=== PATIENT | female | born 1990 | race American Indian/Alaskan Native ===

== ENCOUNTER 2019-10-31 18:23 | Emergency (ER) | payer SELFPAY ==
[2019-10-31 18:37] VITALS: BP 106/67
--- NOTE | 2019-10-31 18:46 | Emergency Department Report ---
Upper Respiratory HPI - HPI Chief Complaint: Sore Throat Stated Complaint: COUGHING UP BLOOD/BODY ACHES Time Seen by Provider: 10/31/19 18:36 Duration: 1 week URI Symptoms: Rhinorrhea: Yes, Sore Throat: Yes, Ear Pain: No, Cough: Yes, Shortness of Breath: No, Sick Contacts: No, Unable to Take Fluids: No, Urine Output Abnormal: No, Listless Behavior: No Other History: This is a 29-year-old female nontoxic well in [facility] with no signs of distress presents with frontal sinus pain, sore throat, dry nonproductive cough x1 week. Patient denies any chest pain, shortness of breathe, fever, chills, nausea, vomiting, headache, stiff neck, abdominal pain, numbness or tingling. Patient denies any recent travels, long car rides, or recent hospital stays. Denies any allergies or significant PMH. - Home Meds and Allergies Home Medications: Previous Rx's Medication Instructions Recorded Last Taken Type Amlodipine Besylate [Norvasc] 5 mg PO DAILY #30 tablet 12/23/18 Unknown Rx Clindamycin [Clindamycin CAP] 300 mg PO Q8H #21 cap 12/23/18 Unknown Rx Hydrocortisone [Anusol-Hc] 30 gm RC BID #1 cream..g. 12/23/18 Unknown Rx Azithromycin [Zithromax Z-JOSE ANGEL] 250 mg PO DAILY #6 tablet 10/31/19 Unknown Rx Benzonatate [Tessalon Perles] 100 mg PO Q8HR PRN #20 capsule 10/31/19 Unknown Rx Ibuprofen [Motrin] 600 mg PO Q8H PRN #20 tablet 10/31/19 Unknown Rx Allergies/Adverse Reactions: Allergies Allergy/AdvReac Type Severity Reaction Status Date / Time No Known Allergies Allergy Unverified 12/23/18 08:18 ED Review of Systems ROS: Stated complaint: COUGHING UP BLOOD/BODY ACHES Other details as noted in HPI Constitutional: denies: chills, fever Eyes: denies: eye pain, eye discharge, vision change ENT: throat pain. denies: ear pain Respiratory: cough. denies: shortness of breath, wheezing Cardiovascular: denies: chest pain, palpitations Endocrine: no symptoms reported Gastrointestinal: denies: abdominal pain, nausea, diarrhea Genitourinary: denies: urgency, dysuria, discharge Musculoskeletal: denies: back pain, joint swelling, arthralgia Skin: denies: rash, lesions Neurological: denies: headache, weakness, paresthesias Psychiatric: denies: anxiety, depression Hematological/Lymphatic: denies: easy bleeding, easy bruising ED Past Medical Hx - Past Medical History Previous Medical History?: No - Surgical History Past Surgical History?: No - Social History Smoking Status: Never Smoker Substance Use Type: None - Medications Home Medications: Home Medications Medication Instructions Recorded Confirmed Last Taken Type Amlodipine Besylate [Norvasc] 5 mg PO DAILY #30 tablet 12/23/18 Unknown Rx Clindamycin [Clindamycin CAP] 300 mg PO Q8H #21 cap 12/23/18 Unknown Rx Hydrocortisone [Anusol-Hc] 30 gm RC BID #1 cream..g. 12/23/18 Unknown Rx Azithromycin [Zithromax Z-JOSE ANGEL] 250 mg PO DAILY #6 tablet 10/31/19 Unknown Rx Benzonatate [Tessalon Perles] 100 mg PO Q8HR PRN #20 capsule 10/31/19 Unknown Rx Ibuprofen [Motrin] 600 mg PO Q8H PRN #20 tablet 10/31/19 Unknown Rx ED Bronchiolitis Physical Exam - Exam General: Vital signs noted. No distress. Alert and acting appropriately. Neurologic: Alert and oriented, no deficits. Musculoskeletal: Unremarkable. ED Physical Exam - General Limitations: No Limitations General appearance: alert, in no apparent distress - Head Head exam: Present: atraumatic, normocephalic - Expanded ENT Exam Expanded Ear exam: Present: normal external inspection Mouth exam: Present: normal external inspection. Absent: drooling, trismus, muffled voice Teeth exam: Present: normal inspection Throat exam: Positive: tonsillar erythema, other (uvula midline). Negative: tonsillomegaly, tonsillar exudate, R peritonsillar mass, L peritonsillar mass - Neck Neck exam: Present: normal inspection, full ROM. Absent: tenderness, meningismus, lymphadenopathy - Respiratory Respiratory exam: Present: normal lung sounds bilaterally. Absent: respiratory distress, wheezes, rales, rhonchi, stridor, chest wall tenderness, accessory muscle use, decreased breath sounds, prolonged expiratory - Cardiovascular Cardiovascular Exam: Present: regular rate, normal rhythm, normal heart sounds. Absent: irregular rhythm, systolic murmur, diastolic murmur, rubs, gallop - Extremities Exam Extremities exam: Present: normal inspection, full ROM - Back Exam Back exam: Present: normal inspection, full ROM. Absent: tenderness, CVA tenderness (R), CVA tenderness (L), muscle spasm, paraspinal tenderness, vertebral tenderness, rash noted - Neurological Exam Neurological exam: Present: alert, oriented X3, normal gait - Psychiatric Psychiatric exam: Present: normal affect, normal mood - Skin Skin exam: Present: warm, dry, intact, normal color. Absent: rash - Other Other exam information: Positive frontal sinus pain. ED Course Vital Signs 10/31/19 18:32 Temperature 98.3 F Pulse Rate 98 H Respiratory 18 Rate Blood Pressure 106/67 O2 Sat by Pulse 79 L Oximetry - Reevaluation(s) Reevaluation #1: 10/31/19 18:44 Patient is speaking in full sentences with no signs of distress noted. ED Medical Decision Making - Medical Decision Making 29-year-old female that presents with sinusitis, pharyngitis, and bronchitis like symptoms. Patient is stable and was examined by me. PAtient will be treated with zpak. Vital signs are stable. Patient was instructed to Follow-up with a primary care doctor in 3-5 days or if symptoms worsen and continue return to emergency room as soon as possible. At time of discharge, the patient does not seem toxic or ill in appearance. No acute signs of distress noted. Patient agrees to discharge treatment plan of care. No further questions noted by the patient. Critical care attestation.: If time is entered above; I have spent that time in minutes in the direct care of this critically ill patient, excluding procedure time. ED Disposition Clinical Impression: Bronchitis, Sinusitis Pharyngitis Qualifiers: Pharyngitis/tonsillitis etiology: unspecified etiology Qualified Code(s): J02.9 - Acute pharyngitis, unspecified Disposition: - TO HOME OR SELFCARE Is pt being admited?: No Does the pt Need Aspirin: No Condition: Stable Instructions: Acute Bronchitis (ED), Pharyngitis (ED), Sinusitis (ED) Additional Instructions: Follow-up with a primary care doctor in 3-5 days or if symptoms worsen and continue return to emergency room as soon as possible. Prescriptions: Ibuprofen [Motrin] 600 mg PO Q8H PRN #20 tablet PRN Reason: Pain/Fever Benzonatate [Tessalon Perles] 100 mg PO Q8HR PRN #20 capsule PRN Reason: Cough Azithromycin [Zithromax Z-JOSE ANGEL] 250 mg PO DAILY #6 tablet Referrals: PRIMARY CAREMD [Primary Care Provider] - 3-5 Days MELONY MOCTEZUMA MD [Staff Physician] - 3-5 Days [facility] [Outside] - 3-5 Days Forms: Work/School Release Form(ED)
== END 2019-10-31 19:20 | disposition home or self-care (01) ==
LOC: ED 18:23
DX: J40 Bronchitis, not specified as acute or chronic (principal); J32.9 Chronic sinusitis, unspecified; J02.9 Acute pharyngitis, unspecified; Z79.1 Long term (current) use of non-steroidal anti-inflammatories (NSAID); Z79.2 Long term (current) use of antibiotics; Z79.899 Other long term (current) drug therapy
CPT/HCPCS: 99282

== ENCOUNTER 2020-04-26 13:29 | Emergency (ER) | payer SELFPAY ==
[2020-04-26] MEDS ORDERED: BUTALB/ACETAMINOPHEN/CAFFEINE TAB PO ONE (16:16)
[2020-04-26] MEDS ORDERED: METOCLOPRAMIDE 10 MG TAB PO ONE (16:16)
--- NOTE | 2020-04-26 16:43 | Emergency Department Report ---
ED Headache HPI - General Chief Complaint: Headache Stated Complaint: HEADACHE Time Seen by Provider: 04/26/20 16:06 Source: patient Exam Limitations: no limitations - History of Present Illness Initial Comments: This is a 29-year-old female with a history of hypertension, sleep apnea and chronic headache who presents to the ED complaining of frontal headache worsening x1 week. Patient states that she is at headache for several years and usually takes Goody powder without relief. Patient states that recently she has been switched to overnight shift at [employer] [employer] and has been working a lot which is been causing a lot of stress. Patient states this past week she has been working a lot she has noticed a headache worsening usually at night. Patient denies any injury or trauma to the head. She denies nausea vomiting, blurry vision or chest pain. Patient also noted that she is not taking her blood pressure medication because she ran out. Timing/Duration: 1 week Quality: moderate Head Injury Location: frontal Recent Head Trauma: no recent headache/trauma, chronic headaches Associated Symptoms: fatigue. denies: loss of consciousness, nausea/vomiting, nasal congestion Allergies/Adverse Reactions: Allergies No Known Allergies Allergy (Unverified 12/23/18 08:18) Home Medications: Ambulatory Orders Amlodipine Besylate [Norvasc] 5 mg PO DAILY #30 tablet 12/23/18 Clindamycin [Clindamycin CAP] 300 mg PO Q8H #21 cap 12/23/18 Hydrocortisone [Anusol-Hc] 30 gm RC BID #1 cream..g. 12/23/18 Azithromycin [Zithromax Z-JOSE ANGEL] 250 mg PO DAILY #6 tablet 10/31/19 Benzonatate [Tessalon Perles] 100 mg PO Q8HR PRN #20 capsule 10/31/19 Ibuprofen [Motrin] 600 mg PO Q8H PRN #20 tablet 10/31/19 Butalb/Acetaminophen/Caffeine [Fioricet 50-300-40 mg CAP] 1 cap PO Q8HR PRN #20 cap 04/26/20 amLODIPine 10 mg PO DAILY #40 tab 04/26/20 ED Review of Systems ROS: Stated complaint: HEADACHE Other details as noted in HPI Comment: All other systems reviewed and negative ED Past Medical Hx - Past Medical History Previous Medical History?: No - Surgical History Past Surgical History?: No - Social History Smoking Status: Never Smoker - Medications Home Medications: Home Medications Medication Instructions Recorded Confirmed Last Taken Type Amlodipine Besylate [Norvasc] 5 mg PO DAILY #30 tablet 12/23/18 Unknown Rx Clindamycin [Clindamycin CAP] 300 mg PO Q8H #21 cap 12/23/18 Unknown Rx Hydrocortisone [Anusol-Hc] 30 gm RC BID #1 cream..g. 12/23/18 Unknown Rx Azithromycin [Zithromax Z-JOSE ANGEL] 250 mg PO DAILY #6 tablet 10/31/19 Unknown Rx Benzonatate [Tessalon Perles] 100 mg PO Q8HR PRN #20 capsule 10/31/19 Unknown Rx Ibuprofen [Motrin] 600 mg PO Q8H PRN #20 tablet 10/31/19 Unknown Rx Butalb/Acetaminophen/Caffeine 1 cap PO Q8HR PRN #20 cap 04/26/20 Unknown Rx [Fioricet 50-300-40 mg CAP] amLODIPine 10 mg PO DAILY #40 tab 04/26/20 Unknown Rx ED Physical Exam - General Limitations: No Limitations General appearance: alert, in no apparent distress - Head Head exam: Present: atraumatic, normocephalic - Eye Eye exam: Present: normal appearance, PERRL, EOMI Pupils: Present: normal accommodation - ENT ENT exam: Present: mucous membranes moist - Neck Neck exam: Present: normal inspection, full ROM. Absent: tenderness - Respiratory Respiratory exam: Present: normal lung sounds bilaterally. Absent: respiratory distress - Cardiovascular Cardiovascular Exam: Present: regular rate, normal rhythm. Absent: systolic murmur, diastolic murmur, rubs, gallop - GI/Abdominal GI/Abdominal exam: Present: soft, normal bowel sounds - Extremities Exam Extremities exam: Present: normal inspection - Back Exam Back exam: Present: normal inspection - Neurological Exam Neurological exam: Present: alert, oriented X3, CN II-XII intact, normal gait - Psychiatric Psychiatric exam: Present: normal affect, normal mood - Skin Skin exam: Present: warm, dry, intact, normal color. Absent: rash ED Course Vital Signs 04/26/20 04/26/20 04/26/20 14:24 16:29 17:29 Temperature 98.4 F Pulse Rate 101 H Respiratory 18 18 18 Rate Blood Pressure 187/131 Blood Pressure [Left] O2 Sat by Pulse 94 Oximetry 04/26/20 18:07 Temperature Pulse Rate 84 Respiratory 16 Rate Blood Pressure Blood Pressure 148/95 [Left] O2 Sat by Pulse 94 Oximetry ED Medical Decision Making - Lab Data Vital Signs 04/26/20 04/26/20 04/26/20 14:24 16:29 18:07 Temperature 98.4 F Pulse Rate 101 H 84 Respiratory 18 18 16 Rate Blood Pressure 187/131 Blood Pressure 148/95 [Left] O2 Sat by Pulse 94 94 Oximetry - Medical Decision Making This 29-year-old female with presents with headache most likely secondary to uncontrolled hypertension/stress. Patient received pain medication in the ED, Discussed with patient importance of taking her blood pressure medication. Also discussed follow-up with primary care physician. Patient reports headache feeling better after being medicated. Patient has no neurological deficit. Blood pressure reduced prior to discharge Discussed with patient certainly worsening symptoms she may return to the ED. Critical care attestation.: If time is entered above; I have spent that time in minutes in the direct care of this critically ill patient, excluding procedure time. ED Disposition Clinical Impression: Headache, Uncontrolled hypertension Disposition: DC-01 TO HOME OR SELFCARE Is pt being admited?: No Does the pt Need Aspirin: No Condition: Stable Instructions: Tension Headache (ED), Acute Headache (ED), Hypertension (ED) Additional Instructions: Make sure to follow up with the primary care physician as discussed. Take all your medications as you've been prescribed. If you have any worsening symptoms or develop new symptoms please return to ED immediately. Prescriptions: amLODIPine 10 mg PO DAILY #40 tab Butalb/Acetaminophen/Caffeine [Fioricet 50-300-40 mg CAP] 1 cap PO Q8HR PRN #20 cap PRN Reason: Headache Referrals: BLANCHE MULLIGAN MD [Primary Care Provider] - 3-5 Days Forms: Work/School Release Form(ED)
[2020-04-26 18:08] VITALS: BP 148/95
== END 2020-04-26 18:48 | disposition home or self-care (01) ==
LOC: ED 13:29
DX: I10 Essential (primary) hypertension (principal); Z79.899 Other long term (current) drug therapy
CPT/HCPCS: 99282

== ENCOUNTER 2020-06-19 17:54 | Emergency (ER) | payer SELFPAY ==
--- NOTE | 2020-06-19 18:20 | Event Note ---
ED Screening Note ED Screening Note: BLE edema, left greater than right left calf pain states has mild CP no SOB oxygen saturation is 90-94% on RA will send to MAIN ED for eval by This initial assessment/diagnostic orders/clinical plan/treatment(s) is/are subject to change based on patients health status, clinical progression and re-assessment by fellow clinical providers in the ED. Further treatment and workup at subsequent clinical providers discretion. Patient/guardian urged not to elope from the ED as their condition may be serious if not clinically assessed and managed. Initial orders include: labs, EKG, CXR, US
--- NOTE | 2020-06-19 20:01 | Vascular Lab Report ---
DUPLEX DOPPLER LOWER EXTREMITY VEINS, BILATERAL INDICATION / CLINICAL INFORMATION: BLE edema, left greater than right, left calf pain. TECHNIQUE: Duplex doppler imaging was performed through the veins of both lower extremities using venous jarek casimiro and other maneuvers. COMPARISON: None available. FINDINGS: RIGHT COMMON FEMORAL VEIN: Negative. RIGHT FEMORAL VEIN: Negative. RIGHT POPLITEAL VEIN: Negative. RIGHT CALF VEINS: Negative. LEFT COMMON FEMORAL VEIN: Negative. LEFT FEMORAL VEIN: Negative. LEFT POPLITEAL VEIN: Negative. LEFT CALF VEINS: Negative. ADDITIONAL FINDINGS: None. IMPRESSION: 1. No sonographic evidence for DVT in either lower extremity. Signer Name: Lucas Gonzales MD FACR Signed: 06/19/2020 7:57 PM Workstation Name: [id number]
--- NOTE | 2020-06-19 20:04 | XRay Report ---
CHEST 2 VIEWS INDICATION / CLINICAL INFORMATION: MAIN. COMPARISON: None available. FINDINGS: SUPPORT DEVICES: None. HEART / MEDIASTINUM: Cardiomegaly LUNGS / PLEURA: Mild pulmonary vascular congestion No pneumothorax. ADDITIONAL FINDINGS: No significant additional findings. IMPRESSION: Cardiomegaly with mild pulmonary vascular congestion Signer Name: Lucas Gonzales MD FACR Signed: 06/19/2020 8:00 PM Workstation Name: [id number]
[2020-06-19 20:05] LABS: Basophils % (Auto) 0.3 % (0.0-1.8); Eosinophils % (Auto) 0.6 % (0.0-4.3); Lymphocytes # (Auto) 2.2 K/mm3 (1.2-5.4); Lymphocytes % (Auto) 25.1 % (13.4-35.0); Mean Corpuscular HGB Conc 29 % (30-34); Mean Corpuscular Volume 76 fl (79-97); Monocytes # (Auto) 0.7 K/mm3 (0.0-0.8); Monocytes % (Auto) 7.8 % (0.0-7.3); Platelet Count 337 K/mm3 (140-440); Red Blood Count 5.48 M/mm3 (3.65-5.03)
--- NOTE | 2020-06-19 20:05 | Emergency Department Report ---
ED General Adult HPI - General Chief complaint: Extremity Injury, Lower Stated complaint: SWOLLEN LEG Time Seen by Provider: 06/19/20 18:18 Source: patient Mode of arrival: Ambulatory Limitations: No Limitations - History of Present Illness Initial comments: Patient is 29 years old female with history of obstructive sleep apnea. Patient presented to the ER complaining of left leg swelling. Patient stated that her mother noticed that. 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 Patient denied any chest pain. Patient also denied any fever or chills. No recent immobilization. -: week(s) Radiation: extremity Severity scale (0 -10): 7 - Related Data Previous Rx's Medication Instructions Recorded Last Taken Type Amlodipine Besylate [Norvasc] 5 mg PO DAILY #30 tablet 12/23/18 Unknown Rx Clindamycin [Clindamycin CAP] 300 mg PO Q8H #21 cap 12/23/18 Unknown Rx Hydrocortisone [Anusol-Hc] 30 gm RC BID #1 cream..g. 12/23/18 Unknown Rx Azithromycin [Zithromax Z-JOSE ANGEL] 250 mg PO DAILY #6 tablet 10/31/19 Unknown Rx Benzonatate [Tessalon Perles] 100 mg PO Q8HR PRN #20 capsule 10/31/19 Unknown Rx Ibuprofen [Motrin] 600 mg PO Q8H PRN #20 tablet 10/31/19 Unknown Rx Butalb/Acetaminophen/Caffeine 1 cap PO Q8HR PRN #20 cap 04/26/20 Unknown Rx [Fioricet 50-300-40 mg CAP] amLODIPine 10 mg PO DAILY #40 tab 04/26/20 Unknown Rx Azithromycin [Zithromax Z-JOSE ANGEL] 250 mg PO DAILY 1 Days tab 06/20/20 Unknown Rx Allergies Allergy/AdvReac Type Severity Reaction Status Date / Time No Known Allergies Allergy Unverified 12/23/18 08:18 ED Review of Systems ROS: Stated complaint: SWOLLEN LEG Other details as noted in HPI Comment: All other systems reviewed and negative Constitutional: denies: chills, fever Respiratory: shortness of breath. denies: cough, orthopnea, SOB with exertion, SOB at rest, wheezing Cardiovascular: denies: chest pain, palpitations Gastrointestinal: denies: abdominal pain, nausea, vomiting Musculoskeletal: myalgia. denies: back pain ED Past Medical Hx - Past Medical History Previous Medical History?: Yes Additional medical history: bronchitis and sleep apnea - Surgical History Past Surgical History?: No - Social History Smoking Status: Never Smoker - Medications Home Medications: Home Medications Medication Instructions Recorded Confirmed Last Taken Type Amlodipine Besylate [Norvasc] 5 mg PO DAILY #30 tablet 12/23/18 Unknown Rx Clindamycin [Clindamycin CAP] 300 mg PO Q8H #21 cap 12/23/18 Unknown Rx Hydrocortisone [Anusol-Hc] 30 gm RC BID #1 cream..g. 12/23/18 Unknown Rx Azithromycin [Zithromax Z-JOSE ANGEL] 250 mg PO DAILY #6 tablet 10/31/19 Unknown Rx Benzonatate [Tessalon Perles] 100 mg PO Q8HR PRN #20 capsule 10/31/19 Unknown Rx Ibuprofen [Motrin] 600 mg PO Q8H PRN #20 tablet 10/31/19 Unknown Rx Butalb/Acetaminophen/Caffeine 1 cap PO Q8HR PRN #20 cap 04/26/20 Unknown Rx [Fioricet 50-300-40 mg CAP] amLODIPine 10 mg PO DAILY #40 tab 04/26/20 Unknown Rx Azithromycin [Zithromax Z-JOSE ANGEL] 250 mg PO DAILY 1 Days tab 06/20/20 Unknown Rx ED Physical Exam - General Limitations: No Limitations General appearance: alert, in no apparent distress - Head Head exam: Present: atraumatic, normocephalic, normal inspection - Eye Eye exam: Present: normal appearance - ENT ENT exam: Present: normal exam, normal orophraynx, mucous membranes moist - Neck Neck exam: Present: normal inspection, full ROM. Absent: tenderness, meningismus - Respiratory Respiratory exam: Present: normal lung sounds bilaterally - Cardiovascular Cardiovascular Exam: Present: regular rate, normal rhythm, normal heart sounds - GI/Abdominal GI/Abdominal exam: Present: soft, normal bowel sounds. Absent: distended, tenderness, guarding, rebound, rigid, organomegaly, mass, bruit, pulsatile mass - Extremities Exam Extremities exam: Present: normal inspection, full ROM, normal capillary refill, pedal edema - Back Exam Back exam: Present: normal inspection, full ROM. Absent: CVA tenderness (R), CVA tenderness (L) - Neurological Exam Neurological exam: Present: alert, oriented X3, CN II-XII intact - Psychiatric Psychiatric exam: Present: normal mood - Skin Skin exam: Present: warm, intact, normal color ED Course Vital Signs 06/19/20 06/19/20 06/19/20 18:12 18:45 18:51 Temperature 97.3 F L Pulse Rate 104 H 101 H 97 H Respiratory 18 42 H 18 Rate Blood Pressure 150/97 167/113 Blood Pressure 167/113 [Left] O2 Sat by Pulse 95 Oximetry 06/19/20 06/19/20 06/19/20 19:38 19:46 20:00 Temperature Pulse Rate 97 H 93 H 93 H Respiratory 22 14 14 Rate Blood Pressure 167/113 167/113 159/98 Blood Pressure [Left] O2 Sat by Pulse Oximetry 06/19/20 06/19/20 06/19/20 20:16 20:30 20:46 Temperature Pulse Rate 91 H 88 88 Respiratory 17 24 11 L Rate Blood Pressure 152/108 152/108 141/97 Blood Pressure [Left] O2 Sat by Pulse Oximetry 06/19/20 06/19/20 06/19/20 21:00 21:22 21:30 Temperature Pulse Rate 86 97 H 99 H Respiratory 19 45 H 24 Rate Blood Pressure 149/107 152/108 154/104 Blood Pressure [Left] O2 Sat by Pulse Oximetry 06/19/20 06/19/20 06/19/20 21:46 22:00 22:16 Temperature Pulse Rate 94 H 92 H 87 Respiratory 45 H 24 26 H Rate Blood Pressure 161/118 161/118 161/118 Blood Pressure [Left] O2 Sat by Pulse 99 100 100 Oximetry 06/19/20 06/19/20 06/19/20 22:30 22:46 23:00 Temperature Pulse Rate 85 88 102 H Respiratory 11 L 30 H 47 H Rate Blood Pressure 161/118 161/118 161/118 Blood Pressure [Left] O2 Sat by Pulse 100 89 86 Oximetry 06/19/20 23:16 Temperature Pulse Rate 87 Respiratory 10 L Rate Blood Pressure 161/118 Blood Pressure [Left] O2 Sat by Pulse 100 Oximetry ED Medical Decision Making - Lab Data Result diagrams: 06/19/20 19:40 06/19/20 19:40 - Radiology Data Radiology results: report reviewed - Medical Decision Making Patient is 29 years old female with history of obstructive sleep apnea. Patient presented to the ER complaining of left leg swelling. Patient stated that her mother noticed that. 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 Patient denied any chest pain. Patient also denied any fever or chills. No recent immobilization. Patient labs reviewed and showed elevated D-dimer. CTA chest showed no evidence of pulmonary embolism however there is right upper lobe pneumonia. Patient treated as community-acquired pneumonia received Rocephin and Zithromax. Candelaria paredes has history of significant obstructive sleep apnea. Patient when she got asleep her oxygen saturation dropped to the 80s when she is awake her oxygen saturation is in the 96% on room air. Patient given prescription for Zithromax and advised to follow-up with her primary care physician in the next 2 to 3 days and to return to the ER if she develop any new symptoms. Critical care attestation.: If time is entered above; I have spent that time in minutes in the direct care of this critically ill patient, excluding procedure time. ED Disposition Clinical Impression: Right upper lobe pneumonia, Left leg swelling Disposition: DC-01 TO HOME OR SELFCARE Is pt being admited?: No Condition: Stable Instructions: Bacterial Pneumonia (ED) Prescriptions: Azithromycin [Zithromax Z-JOSE ANGEL] 250 mg PO DAILY 1 Days tab Referrals: PRIMARY CARE, [Primary Care Provider] - 3-5 Days
[2020-06-19 20:09] LABS: Hematocrit 41.6 % (30.3-42.9); Hemoglobin 12.2 gm/dl (10.1-14.3)
[2020-06-19 20:25] LABS: Alanine Aminotransferase 18 units/L (7-56); Albumin 3.4 g/dL (3.9-5); Blood Urea Nitrogen 11 mg/dL (7-17); Calcium 8.6 mg/dL (8.4-10.2); Hemolysis Index 8
[2020-06-19 20:26] LABS: Partial Thromboplastin Time 27.5 Sec. (24.2-36.6)
[2020-06-19 20:37] LABS: BUN/Creatinine Ratio 16
[2020-06-19 21:52] VITALS: BP 161/118
--- NOTE | 2020-06-19 23:57 | Cat Scan Report ---
CTA CHEST WITH IV CONTRAST INDICATION: P.E. PROTOCOL!! Chest pain with S.O.B.. TECHNIQUE: Axial CT images were obtained through the chest after injection of 100 mL IV contrast. 3 plane MIP re constructions were produced. All CT scans at this location are performed using CT dose reduction for ALARA by means of automated exposure control. COMPARISON: None available. FINDINGS: PULMONARY ARTERIES: No pulmonary emboli. AORTA AND ARTERIES: No acute abnormality. MEDIASTINUM: Cardiomegaly. Mild bilateral hilar adenopathy LUNGS: Faint groundglass density within the right upper lobe is suspicious for pneumonitis/pneumonia. ADDITIONAL FINDINGS: Borderline left axillary adenopathy. UPPER ABDOMEN: No acute findings. Fatty liver. BONES: No significant osseous abnormality. IMPRESSION: 1. No CT evidence for pulmonary embolism. 2. Cardiomegaly. 3. Right upper lobe airspace pneumonia. Signer Name: Xu Santos MD Signed: 06/19/2020 11:53 PM Workstation Name: [id number]
[2020-06-20] MEDS ORDERED: cefTRIAXone/NS 1 GM/50 ML 1 GM/50 ML BAG IV ONE (00:10)
[2020-06-20] MEDS ORDERED: AZITHROMYCIN 500 MG in SODIUM CHLORIDE 0.9% 250ML 250 ML IV ONE (01:00)
== END 2020-06-20 02:08 | disposition home or self-care (01) ==
LOC: ED 17:54
DX: R22.42 Localized swelling, mass and lump, left lower limb (principal); J18.9 Pneumonia, unspecified organism; Z79.899 Other long term (current) drug therapy
CPT/HCPCS: 36415; 71046; 71275; 80053; 83880; 84484; 85025; 85379; 85610; 85730; 87040; 93005; 93970; 96365; 96368; 99285; J0456; J0696; J7050; Q9967

== ENCOUNTER 2021-04-04 23:03 | Emergency (ER) | payer OTHER ==
--- NOTE | 2021-04-05 00:28 | Emergency Department Report ---
ED CPR HPI - General Chief Complaint: Cardiac Arrest/CPR Stated Complaint: CARDIAC ARREST Time Seen by Provider: 04/04/21 23:03 Source: EMS Mode of arrival: Stretcher Limitations: No Limitations - History of Present Illness Initial Comments: Patient is a 30-year-old female who presents with EMS for cardiac arrest. Patient was found down for unknown amount of time. Patient's last known well time was 2 PM. MD Complaint: found unresponsive -: unknown Place: other Bystander CPR Performed: No AED Applied by Bystander/Municipal Services Manager: No Shock Advised: No Initial Findings in the Field: unresponsive, no respirations, no pulse ROSC in the Field: No Associated Injuries: No Treatments Prior to Arrival: BMV, other airway device, epinephrine mgs # - Related Data Previous Rx's Medication Instructions Recorded Last Taken Type Amlodipine Besylate [Norvasc] 5 mg PO DAILY #30 tablet 12/23/18 Unknown Rx Clindamycin [Clindamycin CAP] 300 mg PO Q8H #21 cap 12/23/18 Unknown Rx Hydrocortisone [Anusol-Hc] 30 gm RC BID #1 cream..g. 12/23/18 Unknown Rx Azithromycin [Zithromax Z-JOSE ANGEL] 250 mg PO DAILY #6 tablet 10/31/19 Unknown Rx Benzonatate [Tessalon Perles] 100 mg PO Q8HR PRN #20 capsule 10/31/19 Unknown Rx Ibuprofen [Motrin] 600 mg PO Q8H PRN #20 tablet 10/31/19 Unknown Rx Butalb/Acetaminophen/Caffeine 1 cap PO Q8HR PRN #20 cap 04/26/20 Unknown Rx [Fioricet 50-300-40 mg CAP] amLODIPine 10 mg PO DAILY #40 tab 04/26/20 Unknown Rx Azithromycin [Zithromax Z-JOSE ANGEL] 250 mg PO DAILY 1 Days tab 06/20/20 Unknown Rx Allergies Allergy/AdvReac Type Severity Reaction Status Date / Time No Known Allergies Allergy Unverified 12/23/18 08:18 ED Review of Systems ROS: Stated complaint: CARDIAC ARREST Other details as noted in HPI Comment: Unobtainable due to pts medical conditions ED Past Medical Hx - Past Medical History Previous Medical History?: Yes Additional medical history: bronchitis and sleep apnea - Surgical History Past Surgical History?: No - Family History Family history: no significant - Social History Smoking Status: Never Smoker Substance Use Type: None - Medications Home Medications: Home Medications Medication Instructions Recorded Confirmed Last Taken Type Amlodipine Besylate [Norvasc] 5 mg PO DAILY #30 tablet 12/23/18 Unknown Rx Clindamycin [Clindamycin CAP] 300 mg PO Q8H #21 cap 12/23/18 Unknown Rx Hydrocortisone [Anusol-Hc] 30 gm RC BID #1 cream..g. 12/23/18 Unknown Rx Azithromycin [Zithromax Z-JOSE ANGEL] 250 mg PO DAILY #6 tablet 10/31/19 Unknown Rx Benzonatate [Tessalon Perles] 100 mg PO Q8HR PRN #20 capsule 10/31/19 Unknown Rx Ibuprofen [Motrin] 600 mg PO Q8H PRN #20 tablet 10/31/19 Unknown Rx Butalb/Acetaminophen/Caffeine 1 cap PO Q8HR PRN #20 cap 04/26/20 Unknown Rx [Fioricet 50-300-40 mg CAP] amLODIPine 10 mg PO DAILY #40 tab 04/26/20 Unknown Rx Azithromycin [Zithromax Z-JOSE ANGEL] 250 mg PO DAILY 1 Days tab 06/20/20 Unknown Rx ED Physical Exam - General Limitations: No Limitations General appearance: obtunded - Head Head exam: Present: atraumatic, normocephalic - Eye Eye exam: Present: other (Pupils fixed and dilated..) - ENT ENT exam: Present: mucous membranes moist - Neck Neck exam: Present: normal inspection - Cardiovascular Cardiovascular Exam: Present: other (No pulse noted.) - GI/Abdominal GI/Abdominal exam: Present: soft - Extremities Exam Extremities exam: Present: normal inspection (Right lower extremity IO noted.) - Neurological Exam Neurological exam: Present: altered - Skin Skin exam: Present: warm, dry, normal color. Absent: rash ED Course - Reevaluation(s) Reevaluation #1: Patient arrived via EMS. CPR in progress by EMS. Patient has a right lower extremity IO. Patient intubated with a Kenneth tube. Patient will be extubated and ET tube will be placed. 04/04/21 23:02 Reevaluation #2: Patient reintubated. See procedure note. Code continued. 04/04/21 23:06 Reevaluation #3: Resuscitation efforts were terminated due to no signs of life. No cardiac motion. Patient is asystole on the monitor. No pulse noted.. Family support given once the family arrives. 04/04/21 23:10 Reevaluation #4: Family meeting done. 04/05/21 00:02 - Intubation Time Out Performed: Yes Laryngoscope: fiberoptic video scope Size: 3 Assist Device Used: fiberoptic device ET Tube Size: 7.5 Tube Secured Depth (cm): 22 Tube Secured Location: teeth Tube Placement Confirmation: visualized tube passing t, equal breath sounds bilat, no breath sounds over epi, confirmation by capnometr Patient Tolerated Procedure: well, no complications ED Medical Decision Making - Medical Decision Making Patient is a 30-year-old female that presents emergency room for cardiac arrest. Patient was found down for unknown amount of time. Patient brought in by EMS. Patient given multiple rounds of CPR and meds. Patient intubated by EMS with a Kenneth tube. Patient's Kenneth tube was removed and a standard ET tube was placed. Patient tolerated procedure well. Patient coded in accordance with ACLS guidel cecilia. Resuscitation efforts were terminated due to no signs of life. Family support given. During family meeting the family stated that the patient had Covid symptoms. Critical care time documented due to the multiple reassessments, prolonged time at the bedside, - Differential Diagnosis Covid, PE, PR, cardiac arrest Critical Care Time: Yes Critical care time in (mins) excluding proc time.: 35 Critical care attestation.: If time is entered above; I have spent that time in minutes in the direct care of this critically ill patient, excluding procedure time. Critical Care Time: 35 minutes ED Disposition Clinical Impression: Cardiac arrest Disposition: 20 Is pt being admited?: No Does the pt Need Aspirin: No Condition: Critical Time of Disposition: 00:29
== END 2021-04-05 05:55 ==
LOC: ED 23:03
DX: I46.9 Cardiac arrest, cause unspecified (principal); Z79.899 Other long term (current) drug therapy
CPT/HCPCS: 31500; 92950